=== PATIENT | male | born 1950 | race Caucasian/White ===

== ENCOUNTER 2017-06-10 12:54 | Observation (INO) | payer SELFPAY ==
[~2017-06-10] VITALS: Ht 188 cm; Wt 100.9 kg
[~2017-06-10 12:54] MED LIST: ACTOS; ALTACE; ASPIRIN; CYMBALTA; HYDROCODON-ACE1 EAC7 PO; METOPROLOL; NIASPAN; VYTORIN
[2017-06-10 13:55] LABS: HEMATOCRIT 45.3 % (38.0-50.0); MCH 30.8 PG (29.0-34.0); MCHC 35.3 G/DL (30.0-36.0); MCV 87.1 FL (86-99); MEAN PLAT.VOLUME 10.2 uM^3 (9.0-12.4); PLATELET COUNT 213 K/uL (156-360); RBC DIS.WIDTH-CV 11.9 % (11.8-14.6); RBC DIS.WIDTH-SD 37.9 % (39-53); WHITE BLOOD COUNT 7.4 K/uL (4.1-10.2)
[2017-06-10 14:06] LABS: CHLORIDE 98 mEq/L (99-109); POTASSIUM 4.2 mEq/L (3.7-5.4); SODIUM 134 mEq/L (136-147)
[2017-06-10 14:07] LABS: GLUCOSE 330 mg/dL (70-99)
[2017-06-10 14:09] LABS: ANION GAP 14 MEQ/L (2-14)
[2017-06-10 14:11] LABS: GFR ESTIMATE (CALCULATED) > 59 mL/min/
[2017-06-10 14:12] LABS: UREA NITROGEN (BUN) 13 mg/dL (9-23)
[2017-06-10 14:17] LABS: TROP-I INTERPRETATION NEGATIVE; TROPONIN-I 0.05 ng/mL (0.0-0.30)
[2017-06-10] MEDS ORDERED: METOPROLOL TART25 MG PO (15:01)
[2017-06-10] MEDS ORDERED: ADULT LOW DOSE81 M1 PO (15:01)
[2017-06-10] MEDS ORDERED: ALTACE10 MG PO (15:01)
[2017-06-10] MEDS ORDERED: CYMBALTA60 MG PO (15:02)
[2017-06-10] MEDS ORDERED: JENTADUETO 2.51 EAC2 PO (15:02)
[2017-06-10] MEDS ORDERED: ADVIL200 MG PO (15:03)
[2017-06-10 16:24] VITALS: BP 166/88
[2017-06-10 18:27] LABS: TROP-I INTERPRETATION NEGATIVE; TROPONIN-I 0.07 ng/mL (0.0-0.30)
[2017-06-10 20:51] VITALS: BP 142/93
[2017-06-10 21:14] LABS: POINT-OF-CARE METER ID UU13113700
[2017-06-10] MEDS ORDERED: SIMVASTATIN40 MG PO (21:37)
[2017-06-10 23:47] VITALS: BP 132/81
[2017-06-11 01:12] LABS: TROP-I INTERPRETATION NEGATIVE; TROPONIN-I 0.06 ng/mL (0.0-0.30)
[2017-06-11 04:01] VITALS: BP 179/97
[2017-06-11 07:59] LABS: POINT-OF-CARE METER ID UU14162513
[2017-06-11 09:00] VITALS: BP 145/95
[2017-06-11] MEDS ORDERED: PRILOSEC20 MG PO (11:03)
[2017-06-11] MEDS ORDERED: OMEPRAZOLE20 MG PO (16:48)
== END 2017-06-11 11:51 | disposition home or self-care (01) ==
LOC: EME 12:54 → EDOF 15:25 → 5WEST 16:06
PROVIDERS: Hospitalist; Physician Assistant Medical
DX: R07.9 Chest pain, unspecified (principal); I10 Essential (primary) hypertension; I25.10 Atherosclerotic heart disease of native coronary artery without angina pectoris; E11.9 Type 2 diabetes mellitus without complications; Z95.5 Presence of coronary angioplasty implant and graft; Z87.891 Personal history of nicotine dependence; E78.5 Hyperlipidemia, unspecified; I25.2 Old myocardial infarction
CPT/HCPCS: 71020; 80048; 82948; 84484; 85027; 87651 90; 93005; 99281; 99285; G0378; J1815; S0028

== ENCOUNTER 2017-06-11 14:55 | Inpatient (IN) | payer OTHER ==
[~2017-06-11] VITALS: Ht 188 cm; Wt 102.8 kg
[~2017-06-11 14:55] MED LIST changes: +ADULT LOW DOSE81 M1 PO; +ADVIL200 MG PO; +ALTACE10 MG PO; +CYMBALTA60 MG PO; +JENTADUETO 2.51 EAC2 PO; +METOPROLOL TART25 MG PO; +PRILOSEC20 MG PO; +SIMVASTATIN40 MG PO
[2017-06-11 15:36] LABS: HEMATOCRIT 46.6 % (38.0-50.0); MCH 30.5 PG (29.0-34.0); MCV 87.1 FL (86-99); PLATELET COUNT 201 K/uL (156-360); RBC DIS.WIDTH-CV 11.9 % (11.8-14.6); RBC DIS.WIDTH-SD 37.9 % (39-53); RED BLOOD COUNT 5.35 M/uL (4.00-5.50); WHITE BLOOD COUNT 10.5 K/uL (4.1-10.2)
[2017-06-11 15:52] LABS: CHLORIDE 100 mEq/L (99-109); POTASSIUM 4.2 mEq/L (3.7-5.4); SODIUM 137 mEq/L (136-147)
[2017-06-11 15:53] LABS: GLUCOSE 339 mg/dL (70-99)
[2017-06-11 15:55] LABS: ANION GAP 14 MEQ/L (2-14)
[2017-06-11 15:56] LABS: TROP-I INTERPRETATION NEGATIVE; TROPONIN-I 0.05 ng/mL (0.0-0.30)
[2017-06-11 15:57] LABS: GFR ESTIMATE (CALCULATED) > 59 mL/min/
[2017-06-11 15:58] LABS: UREA NITROGEN (BUN) 15 mg/dL (9-23)
[2017-06-11] MEDS ORDERED: OMEPRAZOLE20 MG PO (16:48)
[2017-06-11 17:47] LABS: PROTHROMBIN TIME 10.7 SEC (10.2-12.9)
[2017-06-11 22:40] VITALS: BP 120/71
[2017-06-12 00:31] LABS: METH RESISTANT S AUREUS PCR NEGATIVE (NEGATIVE); PROBE CHECK PASS; SPECIMEN PROCESSING CONTROL PASS
[2017-06-12 06:54] LABS: EOSINOPHIL (%) 0.1 % (0-5); HEMATOCRIT 39.7 % (38.0-50.0); IMMATURE GRANULOCYTE (%) 0.4 % (0.0-0.7); INSTRUMENT ABS NEUTROPHIL CT 8.5 K/uL; LYMPHOCYTE COUNT 1.3 K/uL (1.0-2.8); MCH 30.1 PG (29.0-34.0); MCHC 34.5 G/DL (30.0-36.0); MCV 87.3 FL (86-99); MEAN PLAT.VOLUME 10.5 uM^3 (9.0-12.4); MONOCYTE (%) 5.8 % (3-12); MONOCYTE COUNT 0.6 K/uL (0-0.8); NEUTROPHIL (%) 81.3 % (45-76); NEUTROPHIL COUNT 8.5 K/uL (1.8-6.4); PLATELET COUNT 203 K/uL (156-360); RBC DIS.WIDTH-SD 38.5 % (39-53); RED BLOOD COUNT 4.55 M/uL (4.00-5.50); WHITE BLOOD COUNT 10.5 K/uL (4.1-10.2)
[2017-06-12 06:58] LABS: ANION GAP 14 MEQ/L (2-14); CHLORIDE 103 MEQ/L (99-109); GFR ESTIMATE (CALCULATED) > 59 mL/min/; GLUCOSE 244 mg/dL (70-99); HDL CHOLESTEROL 37 MG/DL (Desirable>=40); LDL CHOLESTEROL 78 mg/dL (Desirable<100); NON-HDL CHOLESTEROL 110 mg/dL (Desirable<160); POTASSIUM 4.1 MEQ/L (3.7-5.4); SAMPLE HEMOLYSIS CHECK 0; SAMPLE ICTERIC CHECK 0; SAMPLE LIPEMIA CHECK 0; SODIUM 139 MEQ/L (136-147); TOTAL CHOLESTEROL 147 mg/dL (Desirable<200); TRIGLYCERIDES 162 MG/DL (Normal: <150); UREA NITROGEN (BUN) 13 mg/dL (9-23)
[2017-06-12 07:00] VITALS: BP 127/78
[2017-06-12 07:58] LABS: Estimated Average Glucose 278 mg/dL (70-123); HEMOGLOBIN A1c (GLYCOHEMOGLOB) 11.3 % HGB (Below 5.7)
[2017-06-12 08:00] VITALS: BP 127/78
[2017-06-12 10:00] VITALS: BP 132/66
[2017-06-12 16:00] VITALS: BP 105/52
[2017-06-12 17:51] LABS: POINT-OF-CARE METER ID UU13113748
[2017-06-12 19:25] VITALS: BP 117/64
[2017-06-12 22:30] VITALS: BP 109/67
[2017-06-13 04:30] VITALS: BP 115/65
[2017-06-13 07:50] VITALS: BP 129/74
[2017-06-13 12:00] VITALS: BP 147/70
[2017-06-13 16:31] VITALS: BP 114/70
[2017-06-13 20:49] VITALS: BP 134/76
== END 2017-06-13 21:14 | disposition home or self-care (01) | DRG 251 ==
LOC: EME 14:55 → EDOF 17:25 → 4WEST 17:25 → 4EAST 06-12 19:34
PROVIDERS: Emergency Medicine; Internal Medicine; Internal Medicine Cardiovascular Disease
PROC: 02704ZZ Dilation of Coronary Artery, One Artery, Percutaneous Endoscopic Approach (ICD-10-PCS; principal; 2017-06-11)
PROC: 4A023N7 Measurement of Cardiac Sampling and Pressure, Left Heart, Percutaneous Approach (ICD-10-PCS; principal; 2017-06-11)
PROC: B2111ZZ Fluoroscopy of Multiple Coronary Arteries using Low Osmolar Contrast (ICD-10-PCS; principal; 2017-06-11)
PROC: B2151ZZ Fluoroscopy of Left Heart using Low Osmolar Contrast (ICD-10-PCS; principal; 2017-06-11)
DX: I21.19 ST elevation (STEMI) myocardial infarction involving other coronary artery of inferior wall (principal); E11.65 Type 2 diabetes mellitus with hyperglycemia; I10 Essential (primary) hypertension; E78.5 Hyperlipidemia, unspecified; I25.110 Atherosclerotic heart disease of native coronary artery with unstable angina pectoris; I25.2 Old myocardial infarction; K21.9 Gastro-esophageal reflux disease without esophagitis; Z87.891 Personal history of nicotine dependence; Z95.5 Presence of coronary angioplasty implant and graft; R00.1 Bradycardia, unspecified; Z79.84 Long term (current) use of oral hypoglycemic drugs
CPT/HCPCS: 80048; 80061; 82948; 83036; 84484; 85025; 85027; 85347; 85610; 85730; 87641; 93005; 94799; 99281; 99285; C1725; C1750; C1769; C1887; J0461; J1644; J1650; J1815; J2250; J2405; J3010

== ENCOUNTER 2018-02-15 11:41 | Emergency (ER) | payer OTHER ==
[~2018-02-15] VITALS: Ht 188 cm; Wt 100.5 kg
[~2018-02-15 11:41] MED LIST changes: +OMEPRAZOLE20 MG PO
[2018-02-15] MEDS ORDERED: ZOFRAN ODT4 MG PO (14:37)
[2018-02-15 15:39] VITALS: BP 123/84
== END 2018-02-15 15:39 | disposition home or self-care (01) ==
LOC: EME 11:41
DX: R51 Headache (principal); K02.9 Dental caries, unspecified; K21.9 Gastro-esophageal reflux disease without esophagitis; I10 Essential (primary) hypertension; E78.5 Hyperlipidemia, unspecified; E11.9 Type 2 diabetes mellitus without complications; I25.2 Old myocardial infarction; Z87.891 Personal history of nicotine dependence
CPT/HCPCS: 70450; 99281; 99284; J1885

== ENCOUNTER 2018-02-26 15:22 | Emergency (ER) | payer OTHER ==
[~2018-02-26] VITALS: Ht 188 cm; Wt 97.3 kg
[~2018-02-26 15:22] MED LIST changes: +ZOFRAN ODT4 MG PO
[2018-02-26 16:59] LABS: BASOPHIL (%) 0.4 % (0-1); EOSINOPHIL (%) 3.9 % (0-5); EOSINOPHIL COUNT 0.4 K/uL (0-0.3); HEMATOCRIT 41.8 % (38.0-50.0); HEMOGLOBIN 15.1 G/DL (12.5-16.6); IMMATURE GRANULOCYTE (%) 0.4 % (0.0-0.7); LYMPHOCYTE (%) 16.9 % (15-42); LYMPHOCYTE COUNT 1.5 K/uL (1.0-2.8); MCH 31.9 PG (29.0-34.0); MCHC 36.1 G/DL (30.0-36.0); MCV 88.2 FL (86-99); MONOCYTE (%) 7.1 % (3-12); MONOCYTE COUNT 0.6 K/uL (0-0.8); NEUTROPHIL (%) 71.3 % (45-76); NEUTROPHIL COUNT 6.4 K/uL (1.8-6.4); PLATELET COUNT 235 K/uL (156-360); RBC DIS.WIDTH-CV 11.9 % (11.8-14.6); RBC DIS.WIDTH-SD 38.5 % (39-53); RED BLOOD COUNT 4.74 M/uL (4.00-5.50)
[2018-02-26 17:08] LABS: CHLORIDE 101 mEq/L (99-109); POTASSIUM 4.2 mEq/L (3.7-5.4); SODIUM 139 mEq/L (136-147)
[2018-02-26 17:10] LABS: GLUCOSE 146 mg/dL (70-99)
[2018-02-26 17:14] LABS: CREATININE 0.9 mg/dL (0.6-1.3); GFR ESTIMATE (CALCULATED) > 59 mL/min/ (58.99-99999)
[2018-02-26 17:15] LABS: UREA NITROGEN (BUN) 10 mg/dL (9-23)
[2018-02-26 22:10] VITALS: BP 154/98
== END 2018-02-26 22:11 | disposition home or self-care (01) ==
LOC: EME 15:22
PROVIDERS: Emergency Medicine
DX: R51 Headache (principal); R53.1 Weakness; E78.5 Hyperlipidemia, unspecified; I10 Essential (primary) hypertension; I25.2 Old myocardial infarction; E11.9 Type 2 diabetes mellitus without complications; Z79.84 Long term (current) use of oral hypoglycemic drugs; K21.9 Gastro-esophageal reflux disease without esophagitis; Z87.891 Personal history of nicotine dependence
CPT/HCPCS: 70140; 70450; 70551; 80048; 85025; 99281; 99285; J0780; J1200; J1885; J7120